=== PATIENT | male | born 1975 | race African-American/Black ===

== ENCOUNTER 2019-04-07 20:59 | Inpatient (IN) | payer OTHER ==
[2019-04-07 22:27] VITALS: BMI 20.2
--- NOTE | 2019-04-07 22:46 | HP ---
CIWA Score Nausea/Vomitin Muscle Tremors: 3 Anxiety: 3 Agitation: 2 Paroxysmal Sweats: 2 Orientation: 0-Oriented Tacttile Disturbances: 3-Moderate Itch/Numb/Burn Auditory Disturbances: 2-Mild Harshness/Frighten Visual Disturbances: 1-Very Mild Sensitivity Headache: 1-Very Mild CIWA-Ar Total Score: 20 - Admission Criteria OASAS Guidelines: Admission for Medically Managed Detox: Requires at least one of the followin. CIWA greater than 12 2. Seizures within the past 24 hours 3. Delirium tremens within the past 24 hours 4. Hallucinations within the past 24 hours 5. Acute intervention needed for co occurring medical disorder 6. Acute intervention needed for co occurring psychiatric disorder 7. Severe withdrawal that cannot be handled at a lower level of care (continued vomiting, continued diarrhea, abnormal vital signs) requiring intravenous medication and/or fluids 8. Admitting History and Physical - Admission History Source: Patient - Past Medical History Psych: Yes: Anxiety, Depression - Smoking History Smoking history: Current every day smoker Have you smoked in the past 12 months: Yes Admission ROS S - HPI Chief Complaint: DEPENDENT ON ETOH AND CRACK Allergies/Adverse Reactions: Allergies Allergy/AdvReac Type Severity Reaction Status Date / Time No Known Allergies Allergy Verified 04/07/19 22:19 History of Present Illness: THE PT. IS REQUESTING ADMISSION TO THE DETOX UNIT AND CAME FOR MEDICAL CLEARANCE Exam Limitations: No Limitations - Ebola screening Have you traveled outside of the country in the last 21 days: No (N) Have you had contact with anyone from an Ebola affected area: No Have you been sick,other than usual withdrawal symptoms: No Do you have a fever: No - Review of Systems Constitutional: See HPI, Loss of Appetite, Malaise, Weakness, Unexplained wgt Loss EENT: reports: See HPI Respiratory: reports: See HPI, Cough Cardiac: reports: See HPI GI: reports: See HPI, Diarrhea, Nausea, Poor Appetite, Indigestion, Abdominal cramping Musculoskeletal: reports: See HPI, Muscle Pain, Muscle Weakness Integumentary: reports: See HPI, Sweating Neuro: reports: See HPI, Headache, Tremors, Weakness Endocrine: reports: See HPI Hematology: reports: See HPI Psychiatric: reports: Judgement Intact, Orientated x3, Anxious, Depressed Patient History - Patient Medical History Hx Seizures: No Hx Human Immunodeficiency Virus (HIV): No Hx Hepatitis C: No Hx Depression: Yes (AND ANXIETY) Hx Suicide Attempt: No - Patient Surgical History Past Surgical History: Yes Hx Orthopedic Surgery: Yes (FRACTURED LEFT ANKLE - SEVERAL YRS. AGO) Other Surgical History: FRACTURED FACIAL BONES AND MANDIBLE - SEVERAL YRS. AGO - Smoking Cessation Smoking history: Current every day smoker Have you smoked in the past 12 months: Yes Aproximately how many cigarettes per day: 20 Hx Chewing Tobacco Use: No Initiated information on smoking cessation: Yes 'Breaking Loose' booklet given: 04/07/19 - Substance & Tx. History Hx Alcohol Use: Yes Hx Substance Use: Yes Substance Use Type: Alcohol, Cocaine Hx Substance Use Treatment: Yes - Substances abused Alcohol Substance route: Oral Frequency: Daily Amount used: i just keep on drinkling'I don't know'. Age of first use: 16 Date of last use: 04/06/19 Crack Substance route: Smoking Frequency: Daily Amount used: ' I don't know', over a 100 dollaRS. Age of first use: 37 Date of last use: 04/06/19 Admission Physical Exam [facility] - Vital Signs Vital Signs: Vital Signs - 24 hr 04/07/19 22:19 Temperature 98.1 F Pulse Rate 90 Respiratory 16 Rate Blood Pressure 141/90 - Physical General Appearance: Yes: No Apparent Distress, Appropriately Dressed, Thin, Tremorous, Sweating, Anxious HEENTM: Yes: Hearing grossly Normal, Normocephalic, Normal Voice, NEVIN, Pharynx Normal Respiratory: Yes: Chest Non-Tender, Lungs Clear, Normal Breath Sounds, No Respiratory Distress, No Accessory Muscle Use Breast: Yes: Breast Exam Deferred, Axillae without masses Cardiology: Yes: Regular Rhythm, S1, S2, Tachycardia Abdominal: Yes: Normal Bowel Sounds, Non Tender, Flat, Soft Back: Yes: Normal Inspection Musculoskeletal: Yes: full range of Motion, Gait Steady, Pelvis Stable, Muscle Pain, Muscle weakness Extremities: Yes: Normal Capillary Refill, Non-Tender, Tremors Neurological: Yes: surgical services manager II-XII NML intact, Fully Oriented, Alert, Motor Strength 5/5, Normal Response, Depressed Affect Integumentary: Yes: Warm, Moist Lymphatic: Yes: Within Normal Limits - Addiitonal Findings: TWO SMALL ABSCESSES ON RT. LEG NOTED THEY ARE OPEN WOUND AND NO DISCHARGE NOTED AT THIS TIME ONCOMYCOSIS NOTED - Diagnostic (1) EtOH dependence Current Visit: Yes Status: Chronic Qualifiers: Substance use status: uncomplicated Qualified Code(s): F10.20 - Alcohol dependence, uncomplicated (2) Cocaine dependence Current Visit: Yes Status: Chronic Qualifiers: Substance use status: uncomplicated Qualified Code(s): F14.20 - Cocaine dependence, uncomplicated (3) Onychomycosis Current Visit: Yes Status: Chronic (4) Nicotine dependence Current Visit: Yes Status: Chronic Qualifiers: Nicotine product type: cigarettes Substance use status: uncomplicated Qualified Code(s): F17.210 - Nicotine dependence, cigarettes, uncomplicated (5) Loss of weight Current Visit: Yes Status: Chronic Cleared for Admission S - Detox or Rehab S Level of Care: Medically Supervised Detox Regimen/Protocol: Librium Breathalyzer - Breathalyzer Breathalyzer: 0 Inpatient Rehab Admission - Rehab Decision to Admit Inpatient rehab admission?: No
[2019-04-07] MEDS ORDERED: chlordiazePOXIDE HCL 25 MG CAPSULE PO ONE (22:53)
[2019-04-07] MEDS ORDERED: MAGNESIUM CITRATE 300 ML BOTTLE PO PRN (22:53)
[2019-04-07] MEDS ORDERED: NICOTINE POLACRILEX 4 MG GUM BUC PRN (22:53)
[2019-04-07] MEDS ORDERED: ACETAMINOPHEN 325 MG TABLET (FP) PO PRN ×2 (22:53)
[2019-04-07] MEDS ORDERED: hydrOXYzine PAMOATE 25 MG CAPSULE (FP) PO PRN (22:53)
[2019-04-07] MEDS ORDERED: METHOCARBAMOL 500 MG TABLET PO PRN (22:53)
[2019-04-07] MEDS ORDERED: MENTHOL/PHENOL 1 EACH UD MM PRN (22:53)
[2019-04-07] MEDS ORDERED: BISMUTH SUBSALICYLATE 524 MG/30 ML UD PO PRN (22:53)
[2019-04-07] MEDS ORDERED: IBUPROFEN 400 MG TABLET (FP) PO PRN (22:53)
[2019-04-07] MEDS ORDERED: MAGNESIUM HYDROX 2400MG/30ML ORAL SUSPENSION 30 ML CUP PO PRN (22:53)
[2019-04-07] MEDS ORDERED: chlordiazePOXIDE HCL 25 MG CAPSULE PO PRN (22:53)
[2019-04-07] MEDS ORDERED: MELATONIN 5 MG TABLETS PO PRN (22:53)
[2019-04-07] MEDS ORDERED: MAG HYDROX/AL HYDROX/SIMETH 30 ML UNIT-DOSE CUP PO PRN (22:53)
[2019-04-07] MEDS: chlordiazePOXIDE HCL 25 MG CAPSULE PO SCH (23:49)
[2019-04-07] MEDS: TOLNAFTATE 1% CREAM 15 GM TUBE TP SCH (23:52)
[2019-04-08] MEDS: chlordiazePOXIDE HCL 25 MG CAPSULE PO SCH ×4 (05:35→22:19)
[2019-04-08 09:56] LABS: HEMATOCRIT 37.7 % (35.4-49); HEMOGLOBIN 12.6 GM/dL (11.7-16.9); MCH 32.7 pg (25.7-33.7); MCHC 33.5 g/dl (32.0-35.9); MEAN CELL VOLUME 97.4 fl (80-96); MEAN PLT VOLUME 8.9 fl (7.5-11.1); PLATELET COUNT 304 K/MM3 (134-434); RBC 3.87 M/mm3 (4.00-5.60); RDW 13.9 % (11.9-15.9); WHITE BLOOD COUNT 7.6 K/mm3 (4.0-10.0)
[2019-04-08 10:12] LABS: ALBUMIN 2.9 g/dl (3.4-5.0); BILIRUBIN,TOTAL 0.3 mg/dL (0.2-1); BLOOD UREA NITROGEN 23.3 mg/dL (7-18); CALCIUM 8.6 mg/dL (8.5-10.1); CREATININE 0.9 mg/dL (0.55-1.3); POTASSIUM 4.1 mmol/L (3.5-5.1); TOT PROT 7.6 g/dl (6.4-8.2)
[2019-04-08] MEDS: PRENATAL VITAMINS W/ FOLIC ACID TABLET (FP) PO SCH (10:22)
[2019-04-08] MEDS: NICOTINE 21 MG/24 HOURS TOPICAL PATCH TD SCH (10:23)
[2019-04-08] MEDS: TOLNAFTATE 1% CREAM 15 GM TUBE TP SCH ×2 (10:23→22:19)
--- NOTE | 2019-04-08 10:26 | PN ---
[facility] CIWA - CIWA Score Nausea/Vomitin-Mild Nausea/No Vomiting Muscle Tremors: 4-Moderate,w/Arms Extend Anxiety: 3 Agitation: 1-Slight > Activity Paroxysmal Sweats: 2 Orientation: 1-Uncertain about Date Tacttile Disturbances: 1-Very Mild Itch/Numbness Auditory Disturbances: 1-Very Mild Visual Disturbances: 0-None Headache: 2-Mild CIWA-Ar Total Score: 16 S Progress Note (SOAP) Subjective: 44 years old male admitted on 04/07/19 for alcohol withdrawal sx management treated with librium detox regimen patient tolerated well ate breakfast resting on bed comfortably prefers to stay in bed today Objective: 04/08/19 10:25 Vital Signs Temperature 96.7 F L 04/08/19 09:15 Pulse Rate 73 04/08/19 09:15 Respiratory Rate 18 04/08/19 09:15 Blood Pressure 115/66 04/08/19 09:15 O2 Sat by Pulse Oximetry (%) Laboratory Last Values WBC 7.6 K/mm3 (4.0-10.0) 04/08/19 08:20 RBC 3.87 M/mm3 (4.00-5.60) L 04/08/19 08:20 Hgb 12.6 GM/dL (11.7-16.9) 04/08/19 08:20 Hct 37.7 % (35.4-49) 04/08/19 08:20 MCV 97.4 fl (80-96) H 04/08/19 08:20 MCH 32.7 pg (25.7-33.7) 04/08/19 08:20 MCHC 33.5 g/dl (32.0-35.9) 04/08/19 08:20 RDW 13.9 % (11.9-15.9) 04/08/19 08:20 Plt Count 304 K/MM3 (134-434) 04/08/19 08:20 MPV 8.9 fl (7.5-11.1) 04/08/19 08:20 Sodium 138 mmol/L (136-145) 04/08/19 08:20 Potassium 4.1 mmol/L (3.5-5.1) 04/08/19 08:20 Chloride 106 mmol/L (98-107) 04/08/19 08:20 Carbon Dioxide 25 mmol/L (21-32) 04/08/19 08:20 Anion Gap 8 MMOL/L (8-16) 04/08/19 08:20 BUN 23.3 mg/dL (7-18) H 04/08/19 08:20 Creatinine 0.9 mg/dL (0.55-1.3) 04/08/19 08:20 Est GFR (CKD-EPI)AfAm 119.97 04/08/19 08:20 Est GFR (CKD-EPI)NonAf 103.51 04/08/19 08:20 Random Glucose 108 mg/dL (74-106) H 04/08/19 08:20 Calcium 8.6 mg/dL (8.5-10.1) 04/08/19 08:20 Total Bilirubin 0.3 mg/dL (0.2-1) 04/08/19 08:20 AST 15 U/L (15-37) 04/08/19 08:20 ALT 20 U/L (13-61) 04/08/19 08:20 Alkaline Phosphatase 118 U/L (45-117) H 04/08/19 08:20 Total Protein 7.6 g/dl (6.4-8.2) 04/08/19 08:20 Albumin 2.9 g/dl (3.4-5.0) L 04/08/19 08:20 lab noted Assessment: 04/08/19 10:25 alcohol withdrawal sx Plan: continue librium detox regimen
--- NOTE | 2019-04-08 12:58 | CONSULT ---
[facility] Psychiatric Consult - Data Date of interview: 04/08/19 Admission source: [facility] Identifying data: First admission to [facility] for this 44 y/o AA male self- referred for detoxification. ISABELLE issues : alcohol, crack/cocaine. Interviewed at [address] [place] [address]. Patient is single, father of two, unemployed, homeless and supported on welfare. Substance Abuse History: Discussed in this session. Details in current [facility] report as follows : Smoking history: Current every day smoker. Have you smoked in the past 12 months: Yes. Aproximately how many cigarettes per day: 20. Hx Chewing Tobacco Use: No. Initiated information on smoking cessation: Yes. ' Breaking Loose' booklet given: 04/07/19. - Substance & Tx. History. Hx Alcohol Use: Yes. Hx Substance Use: Yes. Substance Use Type: Alcohol, Cocaine. Hx Substance Use Treatment: Yes. - Substances abused. Alcohol. Substance route: Oral. Frequency: Daily. Amount used: i just keep on drinkling 'I don't know'. Age of first use: 16. Date of last use: 04/06/19. Crack. Substance route: Smoking. Frequency: Daily. Amount used: ' I don't know', over a 100 dollaRS. Age of first use: 37. Date of last use: 04/06/19 Medical History: Patient endorses good general health. Noted history of onychomycosis and antecedent of surgery for fracture of facial bones + mandible (years ago). Psychiatric History: Patient denies history of psychiatric hospitalizations, OPD care or suicide attempts. Physical/Sexual Abuse/Trauma History: No reported history of traumas or abuse. Additional Comment: No toxicology for review. Mental Status Exam - Mental Status Exam Alert and Oriented to: Time, Place, Person Patient Appearance: Unkempt, Disheveled Mood: Withdrawn Affect: Mood Congruent, Normal Range Patient Behavior: Fatigued, Cooperative Speech Pattern: Clear, Appropriate Voice Loudness: Normal Thought Process: Intact, Goal Oriented Thought Disorder: Not Present Hallucinations: Denies Suicidal Ideation: Denies Homicidal Ideation: Denies Insight/Judgement: Poor Sleep: Well Appetite: Good Muscle strength/Tone: Normal Gait/Station: Normal Psychiatric Findings - Problem List ([place] 1, 2,3) (1) Alcohol use disorder Current Visit: Yes Status: Chronic (2) Cocaine dependence Current Visit: Yes Status: Chronic Qualifiers: Substance use status: uncomplicated Qualified Code(s): F14.20 - Cocaine dependence, uncomplicated (3) Nicotine dependence Current Visit: Yes Status: Chronic Qualifiers: Nicotine product type: cigarettes Substance use status: uncomplicated Qualified Code(s): F17.210 - Nicotine dependence, cigarettes, uncomplicated - Initial Treatment Plan Initial Treatment Plan: Psychoeducation. Sleep hygiene. Detoxification. AA meetings. MAT services offered to patient. Mr Patel declines. Observation.
--- NOTE | 2019-04-08 15:43 | HP ---
CIWA Score Nausea/Vomitin-Mild Nausea/No Vomiting Muscle Tremors: 4-Moderate,w/Arms Extend Anxiety: 3 Agitation: 1-Slight > Activity Paroxysmal Sweats: 2 Orientation: 1-Uncertain about Date Tacttile Disturbances: 1-Very Mild Itch/Numbness Auditory Disturbances: 1-Very Mild Visual Disturbances: 0-None Headache: 2-Mild CIWA-Ar Total Score: 16 - Admission Criteria OASAS Guidelines: Admission for Medically Managed Detox: Requires at least one of the followin. CIWA greater than 12 2. Seizures within the past 24 hours 3. Delirium tremens within the past 24 hours 4. Hallucinations within the past 24 hours 5. Acute intervention needed for co occurring medical disorder 6. Acute intervention needed for co occurring psychiatric disorder 7. Severe withdrawal that cannot be handled at a lower level of care (continued vomiting, continued diarrhea, abnormal vital signs) requiring intravenous medication and/or fluids 8. Admitting History and Physical - Past Medical History Psych: Yes: Anxiety, Depression - Smoking History Smoking history: Current every day smoker Have you smoked in the past 12 months: Yes Aproximately how many cigarettes per day: 20 - Alcohol/Substance Use Hx Alcohol Use: Yes Admission [facility] Allergies/Adverse Reactions: Allergies Allergy/AdvReac Type Severity Reaction Status Date / Time No Known Allergies Allergy Verified 04/07/19 22:19 - Ebola screening Have you traveled outside of the country in the last 21 days: No (N) Have you had contact with anyone from an Ebola affected area: No Have you been sick,other than usual withdrawal symptoms: No Do you have a fever: No Patient History - Patient Medical History Hx Asthma: No Hx Chronic Obstructive Pulmonary Disease (COPD): No Hx Cardiac Disorders: No Hx Hypertension: No Hx Seizures: No Hx Diabetes: No Hx Gastrointestinal Disorders: No Hx Genitourinary Disorders: No Hx Sexually Transmitted Disorders: No Hx Renal Disease (ESRD): No Hx Human Immunodeficiency Virus (HIV): No Hx Hepatitis C: No Hx Depression: Yes (AND ANXIETY) Hx Suicide Attempt: No Hx Schizophrenia: No - Patient Surgical History Past Surgical History: Yes Hx Neurologic Surgery: No Hx Cataract Extraction: No Hx Cardiac Surgery: No Hx Lung Surgery: No Hx Breast Surgery: No Hx Breast Biopsy: No Hx Abdominal Surgery: No Hx Appendectomy: No Hx Cholecystectomy: No Hx Genitourinary Surgery: No Hx Section: No Hx Orthopedic Surgery: Yes (FRACTURED LEFT ANKLE - SEVERAL YRS. AGO) Other Surgical History: FRACTURED FACIAL BONES AND MANDIBLE - SEVERAL YRS. AGO Anesthesia Reaction: No - PPD History Previous Implant?: Yes Documented Results: Negative w/o proof Date: 04/09/19 - Smoking Cessation Smoking history: Current every day smoker Have you smoked in the past 12 months: Yes Aproximately how many cigarettes per day: 20 Hx Chewing Tobacco Use: No Initiated information on smoking cessation: Yes 'Breaking Loose' booklet given: 04/08/19 - Substances abused Alcohol Other (specify): vodka Substance route: Oral Frequency: Daily Amount used: 1-2 pints Age of first use: 17 Date of last use: 04/07/19 Crack Substance route: Smoking Frequency: Daily Amount used: ' I don't know', over a 100 dollaRS. Age of first use: 37 Date of last use: 04/06/19 Admission Physical Exam [facility] - Vital Signs Vital Signs: Vital Signs - 24 hr 04/07/19 04/07/19 04/08/19 22:19 23:47 00:30 Temperature 98.1 F 97.0 F L Pulse Rate 90 104 H Respiratory 16 18 18 Rate Blood Pressure 141/90 130/89 04/08/19 04/08/19 04/08/19 03:30 06:41 09:15 Temperature 97.9 F 96.7 F L Pulse Rate 65 73 Respiratory 18 18 18 Rate Blood Pressure 98/57 L 115/66 04/08/19 13:28 Temperature 97.0 F L Pulse Rate 92 H Respiratory 20 Rate Blood Pressure 109/65 Breathalyzer - Breathalyzer Breathalyzer: 0 Urine Drug Screen - Test Device Lot number: [id number] Expiration date: 12/09/20 - Control Is test valid?: Yes - Results Drug screen NEGATIVE: Yes Urine drug screen results: THC-Marijuana, BZO-Benzodiazepines Inpatient Rehab Admission - Rehab Decision to Admit Inpatient rehab admission?: No
[2019-04-08] MEDS: THIAMINE HCL 100 MG TABLET (FP) PO SCH (22:19)
[2019-04-09] MEDS: chlordiazePOXIDE HCL 25 MG CAPSULE PO SCH ×4 (05:50→22:22)
[2019-04-09] MEDS: PRENATAL VITAMINS W/ FOLIC ACID TABLET (FP) PO SCH (10:50)
[2019-04-09] MEDS: TOLNAFTATE 1% CREAM 15 GM TUBE TP SCH ×2 (10:50→22:22)
[2019-04-09] MEDS: NICOTINE 21 MG/24 HOURS TOPICAL PATCH TD SCH (10:51)
--- NOTE | 2019-04-09 11:19 | PN ---
[facility] CIWA - CIWA Score Nausea/Vomitin-Mild Nausea/No Vomiting Muscle Tremors: 2 Anxiety: 3 Agitation: 2 Paroxysmal Sweats: 1-Minimal Palms Moist Orientation: 0-Oriented Tacttile Disturbances: 1-Very Mild Itch/Numbness Auditory Disturbances: 0-None Visual Disturbances: 0-None Headache: 1-Very Mild CIWA-Ar Total Score: 11 S Progress Note (SOAP) Subjective: 44 years old male admitted on 04/07/19 for alcohol withdrawal sx management treated with librium detox regimen patient tolerate well ambulating on hallway attend groups patient determines to remain sober Objective: 04/09/19 11:18 Vital Signs Temperature 97.6 F 04/09/19 09:26 Pulse Rate 94 H 04/09/19 09:26 Respiratory Rate 18 04/09/19 09:26 Blood Pressure 123/82 04/09/19 09:26 O2 Sat by Pulse Oximetry (%) Laboratory Last Values WBC 7.6 K/mm3 (4.0-10.0) 04/08/19 08:20 RBC 3.87 M/mm3 (4.00-5.60) L 04/08/19 08:20 Hgb 12.6 GM/dL (11.7-16.9) 04/08/19 08:20 Hct 37.7 % (35.4-49) 04/08/19 08:20 MCV 97.4 fl (80-96) H 04/08/19 08:20 MCH 32.7 pg (25.7-33.7) 04/08/19 08:20 MCHC 33.5 g/dl (32.0-35.9) 04/08/19 08:20 RDW 13.9 % (11.9-15.9) 04/08/19 08:20 Plt Count 304 K/MM3 (134-434) 04/08/19 08:20 MPV 8.9 fl (7.5-11.1) 04/08/19 08:20 Sodium 138 mmol/L (136-145) 04/08/19 08:20 Potassium 4.1 mmol/L (3.5-5.1) 04/08/19 08:20 Chloride 106 mmol/L (98-107) 04/08/19 08:20 Carbon Dioxide 25 mmol/L (21-32) 04/08/19 08:20 Anion Gap 8 MMOL/L (8-16) 04/08/19 08:20 BUN 23.3 mg/dL (7-18) H 04/08/19 08:20 Creatinine 0.9 mg/dL (0.55-1.3) 04/08/19 08:20 Est GFR (CKD-EPI)AfAm 119.97 04/08/19 08:20 Est GFR (CKD-EPI)NonAf 103.51 04/08/19 08:20 Random Glucose 108 mg/dL (74-106) H 04/08/19 08:20 Calcium 8.6 mg/dL (8.5-10.1) 04/08/19 08:20 Total Bilirubin 0.3 mg/dL (0.2-1) 04/08/19 08:20 AST 15 U/L (15-37) 04/08/19 08:20 ALT 20 U/L (13-61) 04/08/19 08:20 Alkaline Phosphatase 118 U/L (45-117) H 04/08/19 08:20 Total Protein 7.6 g/dl (6.4-8.2) 04/08/19 08:20 Albumin 2.9 g/dl (3.4-5.0) L 04/08/19 08:20 RPR Titer Nonreactive (NONREACTIVE) 04/08/19 08:20 lab noted Assessment: 04/09/19 11:18 alcohol withdrawal sx Plan: continue librium detox regimen
[2019-04-09] MEDS: THIAMINE HCL 100 MG TABLET (FP) PO SCH (22:22)
[2019-04-10] MEDS ORDERED: chlordiazePOXIDE HCL 10 MG CAPSULE PO PRN
[2019-04-10] MEDS: chlordiazePOXIDE HCL 10 MG CAPSULE PO SCH ×4 (06:09→22:08)
[2019-04-10] MEDS: TOLNAFTATE 1% CREAM 15 GM TUBE TP SCH ×2 (10:25→22:08)
[2019-04-10] MEDS: PRENATAL VITAMINS W/ FOLIC ACID TABLET (FP) PO SCH (10:25)
[2019-04-10] MEDS: NICOTINE 21 MG/24 HOURS TOPICAL PATCH TD SCH (10:25)
--- NOTE | 2019-04-10 11:07 | PN ---
[facility] CIWA - CIWA Score Nausea/Vomitin-Mild Nausea/No Vomiting Muscle Tremors: 2 Anxiety: 3 Agitation: 2 Paroxysmal Sweats: 1-Minimal Palms Moist Orientation: 0-Oriented Tacttile Disturbances: 0-None Auditory Disturbances: 1-Very Mild Visual Disturbances: 0-None Headache: 0-None Present CIWA-Ar Total Score: 10 [facility] Progress Note (SOAP) Subjective: 44 years old male admitted on 04/07/19 for alcohol withdrawal sx management treated with librium detox regimen ate breakfast tolerate food and fluid well resting on bed limited conversation with staff Objective: 04/10/19 11:07 Vital Signs Temperature 97.8 F 04/10/19 09:08 Pulse Rate 88 04/10/19 09:08 Respiratory Rate 18 04/10/19 09:08 Blood Pressure 121/67 04/10/19 09:08 O2 Sat by Pulse Oximetry (%) Laboratory Last Values WBC 7.6 K/mm3 (4.0-10.0) 04/08/19 08:20 RBC 3.87 M/mm3 (4.00-5.60) L 04/08/19 08:20 Hgb 12.6 GM/dL (11.7-16.9) 04/08/19 08:20 Hct 37.7 % (35.4-49) 04/08/19 08:20 MCV 97.4 fl (80-96) H 04/08/19 08:20 MCH 32.7 pg (25.7-33.7) 04/08/19 08:20 MCHC 33.5 g/dl (32.0-35.9) 04/08/19 08:20 RDW 13.9 % (11.9-15.9) 04/08/19 08:20 Plt Count 304 K/MM3 (134-434) 04/08/19 08:20 MPV 8.9 fl (7.5-11.1) 04/08/19 08:20 Sodium 138 mmol/L (136-145) 04/08/19 08:20 Potassium 4.1 mmol/L (3.5-5.1) 04/08/19 08:20 Chloride 106 mmol/L (98-107) 04/08/19 08:20 Carbon Dioxide 25 mmol/L (21-32) 04/08/19 08:20 Anion Gap 8 MMOL/L (8-16) 04/08/19 08:20 BUN 23.3 mg/dL (7-18) H 04/08/19 08:20 Creatinine 0.9 mg/dL (0.55-1.3) 04/08/19 08:20 Est GFR (CKD-EPI)AfAm 119.97 04/08/19 08:20 Est GFR (CKD-EPI)NonAf 103.51 04/08/19 08:20 Random Glucose 108 mg/dL (74-106) H 04/08/19 08:20 Calcium 8.6 mg/dL (8.5-10.1) 04/08/19 08:20 Total Bilirubin 0.3 mg/dL (0.2-1) 04/08/19 08:20 AST 15 U/L (15-37) 04/08/19 08:20 ALT 20 U/L (13-61) 04/08/19 08:20 Alkaline Phosphatase 118 U/L (45-117) H 04/08/19 08:20 Total Protein 7.6 g/dl (6.4-8.2) 04/08/19 08:20 Albumin 2.9 g/dl (3.4-5.0) L 04/08/19 08:20 RPR Titer Nonreactive (NONREACTIVE) 04/08/19 08:20 lab noted Assessment: 04/10/19 11:07 alcohol withdrawal sx Plan: continue librium detox regimen
[2019-04-10] MEDS: THIAMINE HCL 100 MG TABLET (FP) PO SCH (22:08)
[2019-04-11] MEDS: chlordiazePOXIDE HCL 10 MG CAPSULE PO SCH ×2 (05:29→17:34)
[2019-04-11] MEDS: NICOTINE 21 MG/24 HOURS TOPICAL PATCH TD SCH (09:45)
[2019-04-11] MEDS: PRENATAL VITAMINS W/ FOLIC ACID TABLET (FP) PO SCH (09:45)
[2019-04-11] MEDS: TOLNAFTATE 1% CREAM 15 GM TUBE TP SCH ×2 (09:45→22:09)
--- NOTE | 2019-04-11 11:13 | PN ---
[facility] CIWA - CIWA Score Nausea/Vomitin-No Nausea/No Vomiting Muscle Tremors: 2 Anxiety: 2 Agitation: 2 Paroxysmal Sweats: No Perspiration Orientation: 0-Oriented Tacttile Disturbances: 0-None Auditory Disturbances: 0-None Visual Disturbances: 0-None Headache: 0-None Present CIWA-Ar Total Score: 6 [facility] Progress Note (SOAP) Subjective: 44 years old male admitted on 04/07/19 for alcohol withdrawal sx management treated with librium detox regimen ate breakfast ambulating on hallway social with peers discuss aftercare with staff Objective: 04/11/19 11:12 Vital Signs Temperature 97.2 F L 04/11/19 09:09 Pulse Rate 94 H 04/11/19 09:09 Respiratory Rate 18 04/11/19 09:09 Blood Pressure 120/77 04/11/19 09:09 O2 Sat by Pulse Oximetry (%) Laboratory Last Values WBC 7.6 K/mm3 (4.0-10.0) 04/08/19 08:20 RBC 3.87 M/mm3 (4.00-5.60) L 04/08/19 08:20 Hgb 12.6 GM/dL (11.7-16.9) 04/08/19 08:20 Hct 37.7 % (35.4-49) 04/08/19 08:20 MCV 97.4 fl (80-96) H 04/08/19 08:20 MCH 32.7 pg (25.7-33.7) 04/08/19 08:20 MCHC 33.5 g/dl (32.0-35.9) 04/08/19 08:20 RDW 13.9 % (11.9-15.9) 04/08/19 08:20 Plt Count 304 K/MM3 (134-434) 04/08/19 08:20 MPV 8.9 fl (7.5-11.1) 04/08/19 08:20 Sodium 138 mmol/L (136-145) 04/08/19 08:20 Potassium 4.1 mmol/L (3.5-5.1) 04/08/19 08:20 Chloride 106 mmol/L (98-107) 04/08/19 08:20 Carbon Dioxide 25 mmol/L (21-32) 04/08/19 08:20 Anion Gap 8 MMOL/L (8-16) 04/08/19 08:20 BUN 23.3 mg/dL (7-18) H 04/08/19 08:20 Creatinine 0.9 mg/dL (0.55-1.3) 04/08/19 08:20 Est GFR (CKD-EPI)AfAm 119.97 04/08/19 08:20 Est GFR (CKD-EPI)NonAf 103.51 04/08/19 08:20 Random Glucose 108 mg/dL (74-106) H 04/08/19 08:20 Calcium 8.6 mg/dL (8.5-10.1) 04/08/19 08:20 Total Bilirubin 0.3 mg/dL (0.2-1) 04/08/19 08:20 AST 15 U/L (15-37) 04/08/19 08:20 ALT 20 U/L (13-61) 04/08/19 08:20 Alkaline Phosphatase 118 U/L (45-117) H 04/08/19 08:20 Total Protein 7.6 g/dl (6.4-8.2) 04/08/19 08:20 Albumin 2.9 g/dl (3.4-5.0) L 04/08/19 08:20 RPR Titer Nonreactive (NONREACTIVE) 04/08/19 08:20 lab noted Assessment: 04/11/19 11:13 alcohol withdrawal sx Plan: continue librium detox regimen
[2019-04-11] MEDS: THIAMINE HCL 100 MG TABLET (FP) PO SCH (21:36)
[2019-04-12] MEDS ORDERED: chlordiazePOXIDE HCL 10 MG CAPSULE PO ONE (05:00)
[2019-04-12 09:17] VITALS: BP 115/72; PULSE 102; TEMP 97.8
--- NOTE | 2019-04-12 09:48 | DS ---
[facility] Detox Discharge Summary Admission Date: 04/07/19 - History Present History: Alcohol Dependence, Cocaine Dependence Additional Comments: Patient tolerated detox well, follow up with psychiatric care at [facility]. Patient refuse referral to after care, list of out patient programs provided. If worsening symptoms are present patient to seek medical attention. Pertinent Past History: Vital Signs Temperature 97.8 F 04/12/19 09:16 Pulse Rate 102 H 04/12/19 09:16 Respiratory Rate 18 04/12/19 09:16 Blood Pressure 115/72 04/12/19 09:16 O2 Sat by Pulse Oximetry (%) Laboratory Last Values WBC 7.6 K/mm3 (4.0-10.0) 04/08/19 08:20 RBC 3.87 M/mm3 (4.00-5.60) L 04/08/19 08:20 Hgb 12.6 GM/dL (11.7-16.9) 04/08/19 08:20 Hct 37.7 % (35.4-49) 04/08/19 08:20 MCV 97.4 fl (80-96) H 04/08/19 08:20 MCH 32.7 pg (25.7-33.7) 04/08/19 08:20 MCHC 33.5 g/dl (32.0-35.9) 04/08/19 08:20 RDW 13.9 % (11.9-15.9) 04/08/19 08:20 Plt Count 304 K/MM3 (134-434) 04/08/19 08:20 MPV 8.9 fl (7.5-11.1) 04/08/19 08:20 Sodium 138 mmol/L (136-145) 04/08/19 08:20 Potassium 4.1 mmol/L (3.5-5.1) 04/08/19 08:20 Chloride 106 mmol/L (98-107) 04/08/19 08:20 Carbon Dioxide 25 mmol/L (21-32) 04/08/19 08:20 Anion Gap 8 MMOL/L (8-16) 04/08/19 08:20 BUN 23.3 mg/dL (7-18) H 04/08/19 08:20 Creatinine 0.9 mg/dL (0.55-1.3) 04/08/19 08:20 Est GFR (CKD-EPI)AfAm 119.97 04/08/19 08:20 Est GFR (CKD-EPI)NonAf 103.51 04/08/19 08:20 Random Glucose 108 mg/dL (74-106) H 04/08/19 08:20 Calcium 8.6 mg/dL (8.5-10.1) 04/08/19 08:20 Total Bilirubin 0.3 mg/dL (0.2-1) 04/08/19 08:20 AST 15 U/L (15-37) 04/08/19 08:20 ALT 20 U/L (13-61) 04/08/19 08:20 Alkaline Phosphatase 118 U/L (45-117) H 04/08/19 08:20 Total Protein 7.6 g/dl (6.4-8.2) 04/08/19 08:20 Albumin 2.9 g/dl (3.4-5.0) L 04/08/19 08:20 RPR Titer Nonreactive (NONREACTIVE) 04/08/19 08:20 - Physical Exam Results Vital Signs: Vital Signs Temperature 97.8 F 04/12/19 09:16 Pulse Rate 102 H 04/12/19 09:16 Respiratory Rate 18 04/12/19 09:16 Blood Pressure 115/72 04/12/19 09:16 O2 Sat by Pulse Oximetry (%) - Treatment Hospital Course: Detox Protocol Followed, Detoxed Safely, Responded well, Discharged Condition Good Patient has Accepted a Rehab Referral to: follow up with out patient - Medication Discharge Medications: Ambulatory Orders Mirtazapine [Remeron -] 1 tablet PO HS 04/07/19 - Diagnosis (1) Alcohol dependence with withdrawal, uncomplicated Status: Acute (2) Cocaine dependence Status: Chronic Qualifiers: Substance use status: uncomplicated Qualified Code(s): F14.20 - Cocaine dependence, uncomplicated (3) Nicotine dependence Status: Chronic Qualifiers: Nicotine product type: cigarettes Substance use status: uncomplicated Qualified Code(s): F17.210 - Nicotine dependence, cigarettes, uncomplicated - AMA Did Patient Leave Against Medical Advice: No
[2019-04-12] MEDS: TOLNAFTATE 1% CREAM 15 GM TUBE TP SCH (10:17)
[2019-04-12] MEDS: NICOTINE 21 MG/24 HOURS TOPICAL PATCH TD SCH (10:17)
[2019-04-12] MEDS: PRENATAL VITAMINS W/ FOLIC ACID TABLET (FP) PO SCH (10:17)
== END 2019-04-12 10:45 | disposition home or self-care (01) | DRG 774 ==
LOC: YASAS 20:59 → Y3N 22:48
PROVIDERS: ADMIT Allergy & Immunology; ATTEND Allergy & Immunology
PROC: HZ2ZZZZ Detoxification Services for Substance Abuse Treatment (ICD-10-PCS; principal; 2019-04-07)
DX: F10.230 Alcohol dependence with withdrawal, uncomplicated (principal); F14.20 Cocaine dependence, uncomplicated; F17.210 Nicotine dependence, cigarettes, uncomplicated; F41.8 Other specified anxiety disorders; F32.9 Major depressive disorder, single episode, unspecified
CPT/HCPCS: 36415; 80053; 85027; 86593

== ENCOUNTER 2023-03-07 17:07 | Inpatient (IN) | payer OTHER ==
[2023-03-07 19:25] VITALS: BMI 30.5
[2023-03-08] MEDS ORDERED: BENZOCAINE/MENTHOL (CHLORASEPTIC ) LOZENGE MM PRN (02:11)
[2023-03-08] MEDS ORDERED: COLLOIDAL OATMEAL 1 BAR EACH TP PRN (02:11)
[2023-03-08] MEDS ORDERED: NALOXONE HCL 0.4 MG/ML VIAL IM PRN (02:11)
[2023-03-08] MEDS ORDERED: IBUPROFEN 400 MG TABLET (FP) PO PRN (02:11)
[2023-03-08] MEDS ORDERED: MAG HYDROX/AL HYDROX/SIMETH 30 ML UNIT-DOSE CUP PO PRN (02:11)
[2023-03-08] MEDS ORDERED: BENZONATATE 200 MG CAPSULE PO PRN (02:11)
[2023-03-08] MEDS ORDERED: ACETAMINOPHEN 325 MG TABLET (FP) PO PRN (02:11)
[2023-03-08] MEDS ORDERED: MAGNESIUM HYDROX 2400MG/30ML ORAL SUSPENSION 30 ML CUP PO PRN (02:11)
[2023-03-08] MEDS ORDERED: POLYETHYLENE GLYCOL (HEALTHYLAX) 3350 17 GM PACKET PO PRN (02:11)
[2023-03-08] MEDS ORDERED: NICOTINE POLACRILEX 2 MG GUM BUC PRN (02:11)
[2023-03-08] MEDS ORDERED: LOPERAMIDE HCL 2 MG CAPSULE PO PRN (02:11)
[2023-03-08] MEDS ORDERED: guaiFENesin 600 MG TABLET.ER (FP) PO PRN (02:11)
[2023-03-08] MEDS ORDERED: hydrOXYzine PAMOATE 25 MG CAPSULE (FP) PO PRN (02:11)
[2023-03-08] MEDS ORDERED: IBUPROFEN 600 MG TABLET (FP) PO PRN (02:11)
[2023-03-08] MEDS ORDERED: NALOXONE HCL (KLOXXADO) 8 MG SPRAY NS PRN (02:11)
[2023-03-08] MEDS: NICOTINE 14 MG/24 HOURS TOPICAL PATCH TD SCH (09:23)
[2023-03-08] MEDS: PRENATAL VITAMINS W/ FOLIC ACID TABLET (FP) PO SCH (09:23)
[2023-03-08 12:01] LABS: POTASSIUM 3.7 mmol/L (3.5-5.1)
[2023-03-08 12:13] LABS: ALBUMIN 3.4 g/dl (3.4-5.0); CALCIUM 8.8 mg/dL (8.5-10.1)
[2023-03-08 12:16] LABS: CREATININE 0.9 mg/dL (0.55-1.3)
[2023-03-08 12:18] LABS: BILIRUBIN,TOTAL 0.7 mg/dL (0.2-1); TOT PROT 8.5 g/dl (6.4-8.2)
[2023-03-08 12:22] LABS: HEMATOCRIT 37.6 % (35.4-49); HEMOGLOBIN 13.2 GM/dL (11.7-16.9); MCH 32.5 pg (25.7-33.7); MCHC 35.1 g/dl (32.0-35.9); MEAN CELL VOLUME 92.7 fl (80-96); MEAN PLT VOLUME 8.8 fl (7.5-11.1); PLATELET COUNT 269 10^3/uL (134-434); RBC 4.06 M/mm3 (4.00-5.60); RDW 15.5 % (11.9-15.9); WHITE BLOOD COUNT 8.5 K/mm3 (4.0-10.0)
[2023-03-08 12:26] LABS: SYPHILIS W/ RPR CONF NON-REACTIVE (NONREACTIVE)
[2023-03-08 15:17] LABS: URINE APPEARANCE Clear; URINE BILIRUBIN Negative (NEGATIVE); URINE COLOR Yellow; URINE GLUCOSE (UA) Negative (NEGATIVE); URINE KETONE Negative (NEGATIVE); URINE LEUK ESTERASE Negative (NEGATIVE); URINE NITRITE Negative (NEGATIVE); URINE PROTEIN Negative (NEGATIVE)
[2023-03-08] MEDS: THIAMINE HCL 100 MG TABLET (FP) PO SCH (21:45)
[2023-03-08] MEDS ORDERED: MELATONIN 5 MG TABLETS PO SCH (22:00)
[2023-03-09] MEDS: NICOTINE 14 MG/24 HOURS TOPICAL PATCH TD SCH (10:00)
[2023-03-09] MEDS: PRENATAL VITAMINS W/ FOLIC ACID TABLET (FP) PO SCH (10:00)
[2023-03-09] MEDS ORDERED: TUBERCULIN PPD 5 TU/0.1ML VIAL ID ONE (11:37)
[2023-03-09] MEDS ORDERED: TUBERCULIN PPD 5 TU/0.1ML SYRINGE (IN PATIENT USE ONLY) ID ONE (12:00)
[2023-03-09] MEDS ORDERED: NICOTINE 14 MG/24 HOURS TOPICAL PATCH TD PRN (15:45)
[2023-03-09] MEDS: BICTEGRAV/EMTRICIT/TENOFOV (BIKTARVY) 50-200-25 MG TABLET PO SCH (16:21)
[2023-03-09] MEDS: THIAMINE HCL 100 MG TABLET (FP) PO SCH (21:24)
[2023-03-09] MEDS ORDERED: MIRTAZAPINE 15 MG TABLET (FP) ONE (21:25)
[2023-03-09] MEDS: MIRTAZAPINE 30 MG TABLET PO SCH (21:26)
[2023-03-10] MEDS: BICTEGRAV/EMTRICIT/TENOFOV (BIKTARVY) 50-200-25 MG TABLET PO SCH (07:41)
[2023-03-10] MEDS: PRENATAL VITAMINS W/ FOLIC ACID TABLET (FP) PO SCH (10:36)
[2023-03-10] MEDS ORDERED: MIRTAZAPINE 15 MG TABLET (FP) ONE (19:25)
[2023-03-10] MEDS: THIAMINE HCL 100 MG TABLET (FP) PO SCH (21:27)
[2023-03-10] MEDS: MIRTAZAPINE 30 MG TABLET PO SCH (21:27)
[2023-03-11] MEDS: BICTEGRAV/EMTRICIT/TENOFOV (BIKTARVY) 50-200-25 MG TABLET PO SCH (07:19)
[2023-03-11] MEDS: PRENATAL VITAMINS W/ FOLIC ACID TABLET (FP) PO SCH (10:14)
[2023-03-11] MEDS ORDERED: MIRTAZAPINE 15 MG TABLET (FP) ONE (18:45)
[2023-03-11] MEDS: THIAMINE HCL 100 MG TABLET (FP) PO SCH (21:07)
[2023-03-11] MEDS: MIRTAZAPINE 30 MG TABLET PO SCH (21:08)
[2023-03-12] MEDS: BICTEGRAV/EMTRICIT/TENOFOV (BIKTARVY) 50-200-25 MG TABLET PO SCH (07:41)
[2023-03-12] MEDS: PRENATAL VITAMINS W/ FOLIC ACID TABLET (FP) PO SCH (09:44)
[2023-03-12] MEDS ORDERED: MIRTAZAPINE 15 MG TABLET (FP) ONE (18:40)
[2023-03-12] MEDS: MIRTAZAPINE 30 MG TABLET PO SCH (21:16)
[2023-03-12] MEDS: THIAMINE HCL 100 MG TABLET (FP) PO SCH (21:16)
[2023-03-13] MEDS: BICTEGRAV/EMTRICIT/TENOFOV (BIKTARVY) 50-200-25 MG TABLET PO SCH ×2 (07:08→14:47)
[2023-03-13] MEDS ORDERED: BICTEGRAV/EMTRICIT/TENOFOV (BIKTARVY) 50-200-25 MG TABLET PO SCH (10:00)
[2023-03-13] MEDS: PRENATAL VITAMINS W/ FOLIC ACID TABLET (FP) PO SCH (10:25)
[2023-03-13] MEDS ORDERED: MIRTAZAPINE 15 MG TABLET (FP) ONE (19:21)
[2023-03-13] MEDS: THIAMINE HCL 100 MG TABLET (FP) PO SCH (21:18)
[2023-03-13] MEDS: MIRTAZAPINE 30 MG TABLET PO SCH (21:19)
[2023-03-14] MEDS: BICTEGRAV/EMTRICIT/TENOFOV (BIKTARVY) 50-200-25 MG TABLET PO SCH ×2 (07:55→09:00)
[2023-03-14] MEDS: PRENATAL VITAMINS W/ FOLIC ACID TABLET (FP) PO SCH (10:22)
[2023-03-14] MEDS ORDERED: MIRTAZAPINE 15 MG TABLET (FP) ONE (19:27)
[2023-03-14] MEDS: THIAMINE HCL 100 MG TABLET (FP) PO SCH (21:36)
[2023-03-14] MEDS: MIRTAZAPINE 30 MG TABLET PO SCH (21:36)
[2023-03-15] MEDS: BICTEGRAV/EMTRICIT/TENOFOV (BIKTARVY) 50-200-25 MG TABLET PO SCH (07:44)
[2023-03-15] MEDS: PRENATAL VITAMINS W/ FOLIC ACID TABLET (FP) PO SCH (10:29)
[2023-03-15] MEDS ORDERED: MIRTAZAPINE 15 MG TABLET (FP) ONE (19:00)
[2023-03-15] MEDS: MIRTAZAPINE 30 MG TABLET PO SCH (21:25)
[2023-03-15] MEDS: THIAMINE HCL 100 MG TABLET (FP) PO SCH (21:25)
[2023-03-16] MEDS: BICTEGRAV/EMTRICIT/TENOFOV (BIKTARVY) 50-200-25 MG TABLET PO SCH (07:57)
[2023-03-16] MEDS: PRENATAL VITAMINS W/ FOLIC ACID TABLET (FP) PO SCH (10:08)
[2023-03-16] MEDS ORDERED: MIRTAZAPINE 15 MG TABLET (FP) ONE (18:50)
[2023-03-16] MEDS: MIRTAZAPINE 30 MG TABLET PO SCH (21:13)
[2023-03-16] MEDS: THIAMINE HCL 100 MG TABLET (FP) PO SCH (21:13)
[2023-03-17] MEDS: BICTEGRAV/EMTRICIT/TENOFOV (BIKTARVY) 50-200-25 MG TABLET PO SCH (07:59)
[2023-03-17] MEDS: PRENATAL VITAMINS W/ FOLIC ACID TABLET (FP) PO SCH (10:04)
[2023-03-17] MEDS ORDERED: MIRTAZAPINE 15 MG TABLET (FP) ONE (19:07)
[2023-03-17] MEDS: MIRTAZAPINE 30 MG TABLET PO SCH (21:19)
[2023-03-17] MEDS: THIAMINE HCL 100 MG TABLET (FP) PO SCH (21:19)
[2023-03-18] MEDS: BICTEGRAV/EMTRICIT/TENOFOV (BIKTARVY) 50-200-25 MG TABLET PO SCH (07:52)
[2023-03-18] MEDS: PRENATAL VITAMINS W/ FOLIC ACID TABLET (FP) PO SCH (10:06)
[2023-03-18] MEDS ORDERED: MIRTAZAPINE 15 MG TABLET (FP) ONE (19:38)
[2023-03-18] MEDS: THIAMINE HCL 100 MG TABLET (FP) PO SCH (21:06)
[2023-03-18] MEDS: MIRTAZAPINE 30 MG TABLET PO SCH (21:06)
[2023-03-19] MEDS: BICTEGRAV/EMTRICIT/TENOFOV (BIKTARVY) 50-200-25 MG TABLET PO SCH (07:44)
[2023-03-19] MEDS: PRENATAL VITAMINS W/ FOLIC ACID TABLET (FP) PO SCH (09:45)
[2023-03-19] MEDS ORDERED: MIRTAZAPINE 15 MG TABLET (FP) ONE (18:59)
[2023-03-19] MEDS: MIRTAZAPINE 30 MG TABLET PO SCH (21:03)
[2023-03-19] MEDS: THIAMINE HCL 100 MG TABLET (FP) PO SCH (21:03)
[2023-03-20 07:15] VITALS: BP 126/82; PULSE 86; RESP 17; TEMP 97.6
[2023-03-20] MEDS: BICTEGRAV/EMTRICIT/TENOFOV (BIKTARVY) 50-200-25 MG TABLET PO SCH (08:54)
[2023-03-20] MEDS: PRENATAL VITAMINS W/ FOLIC ACID TABLET (FP) PO SCH (09:06)
== END 2023-03-20 09:34 | disposition home or self-care (01) | DRG 772 ==
LOC: YASAS 17:07 → Y3E 03-08 04:23
PROVIDERS: ADMIT Allergy & Immunology; ATTEND Psychiatry & Neurology Pain Medicine
PROC: HZ42ZZZ Group Counseling for Substance Abuse Treatment, Cognitive-Behavioral (ICD-10-PCS; principal; 2023-03-08)
DX: F10.20 Alcohol dependence, uncomplicated (principal); F14.20 Cocaine dependence, uncomplicated; F17.210 Nicotine dependence, cigarettes, uncomplicated; F19.282 Other psychoactive substance dependence with psychoactive substance-induced sleep disorder; Z21 Asymptomatic human immunodeficiency virus [HIV] infection status; I10 Essential (primary) hypertension; L03.116 Cellulitis of left lower limb; R26.89 Other abnormalities of gait and mobility; Z99.89 Dependence on other enabling machines and devices; Z86.59 Personal history of other mental and behavioral disorders; Z59.01 Sheltered homelessness; Z56.0 Unemployment, unspecified
CPT/HCPCS: 36415; 80053; 81003; 85027; 86780; 86803; 87635

== ENCOUNTER 2023-11-14 12:10 | Emergency (ER) | payer OTHER ==
[2023-11-14 12:36] VITALS: RESP 18; BMI 17.2
[2023-11-14] MEDS ORDERED: ACETAMINOPHEN INJECTION 100 ML IVPB ONE (13:41)
[2023-11-14 13:58] LABS: BASO % 0.4 % (0-2.0); EOS % 4.9 % (0-4.5); HEMATOCRIT 38.1 % (35.4-49); HEMOGLOBIN 12.7 GM/dL (11.7-16.9); LYMPH % 24.9 % (8-40); MCH 32.7 pg (25.7-33.7); MCHC 33.3 g/dl (32.0-35.9); MEAN CELL VOLUME 98.3 fl (80-96); MEAN PLT VOLUME 7.8 fl (7.5-11.1); NEUT % 59.8 % (42.8-82.8); PLATELET COUNT 293 10^3/uL (134-434); RBC 3.87 M/mm3 (4.00-5.60); RDW 15.2 % (11.9-15.9); WHITE BLOOD COUNT 8.3 K/mm3 (4.0-10.0)
[2023-11-14 14:01] LABS: EPI CELLS 6 /uL (0-25.1); HYALINE CASTS 2 /uL (0-3.1); PH,URINE 5.5 (5.0-8.0); URINE APPEARANCE CLEAR; URINE BACTERIA 7 /uL (0-1359); URINE BILIRUBIN NEGATIVE (NEGATIVE); URINE COLOR YELLOW; URINE GLUCOSE (UA) NEGATIVE (NEGATIVE); URINE KETONE TRACE (NEGATIVE); URINE LEUK ESTERASE TRACE (NEGATIVE); URINE NITRITE NEGATIVE (NEGATIVE); URINE PROTEIN NEGATIVE (NEGATIVE); URINE RBC 22 /uL (0-23.9); URINE WBC 94 /uL (0-25.8)
[2023-11-14] MEDS: SODIUM CHLORIDE 0.9% 500 ML INFUS.BAG IV ONE (14:08)
[2023-11-14] MEDS: ACETAMINOPHEN 1000 MG/100 ML BAG IVPB ONE (14:09)
[2023-11-14 14:11] LABS: ACTIVATED PTT 30.8 SECONDS (25.2-36.5); INR 1.02 (0.83-1.09); PROTHROMBIN TIME (PATIENT) 11.7 SEC (9.7-13.0)
[2023-11-14 14:32] LABS: ALBUMIN 3.2 g/dl (3.4-5.0); BLOOD UREA NITROGEN 17.3 mg/dL (7-18)
[2023-11-14 14:35] LABS: PHOSPHOROUS 3.4 mg/dL (2.5-4.9)
[2023-11-14 14:37] LABS: BILIRUBIN,TOTAL 1.6 mg/dL (0.2-1); TOT PROT 7.9 g/dl (6.4-8.2)
[2023-11-14 15:10] LABS: CREATININE 0.9 mg/dL (0.55-1.3)
[2023-11-14] MEDS: SODIUM CHLORIDE 1,000 ML IV STA (16:32)
[2023-11-14 17:40] VITALS: BP 116/66; PULSE 74; TEMP 97.9
[2023-11-14] MEDS ORDERED: CEPHALEXIN MONOHYDRATE 500 MG CAPSULE (UD) ONE (18:43)
[2023-11-14] MEDS: CEPHALEXIN MONOHYDRATE 500 MG CAPSULE (UD) PO ONE (18:49)
== END 2023-11-14 19:16 | disposition home or self-care (01) ==
LOC: JER 12:10
PROC: 3E033NZ Introduction of Analgesics, Hypnotics, Sedatives into Peripheral Vein, Percutaneous Approach (ICD-10-PCS; principal; 2023-11-14)
PROC: 3E0337Z Introduction of Electrolytic and Water Balance Substance into Peripheral Vein, Percutaneous Approach (ICD-10-PCS; 2023-11-14)
DX: R42 Dizziness and giddiness (principal); M25.474 Effusion, right foot; F10.20 Alcohol dependence, uncomplicated; F14.20 Cocaine dependence, uncomplicated; M79.10 Myalgia, unspecified site; M79.671 Pain in right foot; M79.672 Pain in left foot; Z59.00 Homelessness unspecified
CPT/HCPCS: 36415; 71045-TC-FY; 73630-TC-RT-FY; 80053; 81003; 82550; 82962; 83735; 84100; 84484; 85025; 85610; 85730; 87086; 93005; 93010; 99285-25; J0131

== ENCOUNTER 2023-11-14 20:07 | Inpatient (IN) | payer OTHER ==
[2023-11-14 20:50] VITALS: BMI 23.6
[2023-11-14] MEDS ORDERED: POLYETHYLENE GLYCOL (HEALTHYLAX) 3350 17 GM PACKET PO PRN (21:31)
[2023-11-14] MEDS ORDERED: guaiFENesin 600 MG TABLET.ER (FP) PO PRN (21:31)
[2023-11-14] MEDS ORDERED: BENZONATATE 200 MG CAPSULE PO PRN (21:31)
[2023-11-14] MEDS ORDERED: IBUPROFEN 400 MG TABLET (FP) PO PRN (21:31)
[2023-11-14] MEDS ORDERED: NICOTINE POLACRILEX 2 MG GUM BUC PRN (21:31)
[2023-11-14] MEDS ORDERED: MAG HYDROX/AL HYDROX/SIMETH 30 ML UNIT-DOSE CUP PO PRN (21:31)
[2023-11-14] MEDS ORDERED: ACETAMINOPHEN 325 MG TABLET (FP) PO PRN (21:31)
[2023-11-14] MEDS ORDERED: NICOTINE POLACRILEX 2 MG LOZENGE BC PRN (21:31)
[2023-11-14] MEDS ORDERED: IBUPROFEN 600 MG TABLET (FP) PO PRN (21:31)
[2023-11-14] MEDS ORDERED: LOPERAMIDE HCL 2 MG CAPSULE PO PRN (21:31)
[2023-11-14] MEDS ORDERED: BENZOCAINE/MENTHOL (CHLORASEPTIC ) LOZENGE MM PRN (21:31)
[2023-11-14] MEDS ORDERED: MAGNESIUM HYDROX 2400MG/30ML ORAL SUSPENSION 30 ML CUP PO PRN (21:31)
[2023-11-15] MEDS: THIAMINE 100 MG TABLET PO SCH (00:48)
[2023-11-15] MEDS: MELATONIN 5 MG TABLETS PO SCH (00:48)
[2023-11-15] MEDS: BICTEGRAV/EMTRICIT/TENOFOV (BIKTARVY) 50-200-25 MG TABLET PO SCH (10:27)
[2023-11-15] MEDS: PRENATAL VITAMINS W/ FOLIC ACID TABLET (FP) PO SCH (10:27)
[2023-11-15] MEDS: METHOCARBAMOL 500 MG TABLET PO PRN (10:29)
[2023-11-16] MEDS: VITAMINS A AND D TOPICAL OINTMENT TP SCH (17:11)
[2023-11-16] MEDS: MIRTAZAPINE 30 MG TABLET PO SCH (21:27)
[2023-11-20] MEDS ORDERED: VITAMINS A AND D TOPICAL OINTMENT TP PRN (10:00)
[2023-11-24 07:01] VITALS: RESP 18
[2023-11-29 06:15] VITALS: BP 120/71; PULSE 74; TEMP 97.2
== END 2023-11-29 09:20 | disposition home or self-care (01) | DRG 772 ==
LOC: YASAS 20:07 → Y5N 11-15 01:12
PROVIDERS: ADMIT Allergy & Immunology; ATTEND Psychiatry & Neurology Pain Medicine
PROC: HZ42ZZZ Group Counseling for Substance Abuse Treatment, Cognitive-Behavioral (ICD-10-PCS; principal; 2023-11-15)
DX: F10.20 Alcohol dependence, uncomplicated (principal); F14.20 Cocaine dependence, uncomplicated; F17.210 Nicotine dependence, cigarettes, uncomplicated; F19.282 Other psychoactive substance dependence with psychoactive substance-induced sleep disorder; F32.A Depression, unspecified; Z21 Asymptomatic human immunodeficiency virus [HIV] infection status; Z79.899 Other long term (current) drug therapy; B35.1 Tinea unguium; N39.0 Urinary tract infection, site not specified; R63.4 Abnormal weight loss; Z68.23 Body mass index [BMI] 23.0-23.9, adult; R26.89 Other abnormalities of gait and mobility; Z99.89 Dependence on other enabling machines and devices; Z59.00 Homelessness unspecified
CPT/HCPCS: 80305; 87811

== ENCOUNTER 2024-08-01 16:38 | Inpatient (IN) | payer OTHER ==
[2024-08-01 19:25] VITALS: BMI 23.5
[2024-08-01] MEDS ORDERED: NALOXONE (NARCAN) HCL 4 MG/0.1 ML SPRAY NS PRN (20:00)
[2024-08-01] MEDS ORDERED: IBUPROFEN 600 MG TABLET (FP) PO PRN (20:00)
[2024-08-01] MEDS ORDERED: BENZOCAINE/MENTHOL (CHLORASEPTIC ) LOZENGE MM PRN (20:00)
[2024-08-01] MEDS ORDERED: BENZONATATE 200 MG CAPSULE PO PRN (20:00)
[2024-08-01] MEDS ORDERED: MAGNESIUM HYDROX 2400MG/30ML ORAL SUSPENSION 30 ML CUP PO PRN (20:00)
[2024-08-01] MEDS ORDERED: NICOTINE POLACRILEX 2 MG LOZENGE BC PRN (20:00)
[2024-08-01] MEDS ORDERED: guaiFENesin 600 MG TABLET.ER (FP) PO PRN (20:00)
[2024-08-01] MEDS ORDERED: MAG HYDROX/AL HYDROX/SIMETH 30 ML UNIT-DOSE CUP PO PRN (20:00)
[2024-08-01] MEDS ORDERED: POLYETHYLENE GLYCOL (HEALTHYLAX) 3350 17 GM PACKET PO PRN (20:00)
[2024-08-01] MEDS ORDERED: LOPERAMIDE HCL 2 MG CAPSULE PO PRN (20:00)
[2024-08-01] MEDS ORDERED: IBUPROFEN 400 MG TABLET (FP) PO PRN (20:00)
[2024-08-02] MEDS: MELATONIN 5 MG TABLETS PO SCH (01:10)
[2024-08-02] MEDS: THIAMINE 100 MG TABLET PO SCH (01:10)
[2024-08-02] MEDS: diphenhydrAMINE HCL 25 MG CAPSULE (FP) PO ONE (01:16)
[2024-08-02] MEDS: PRENATAL VITAMINS W/ FOLIC ACID TABLET (FP) PO SCH (09:19)
[2024-08-02] MEDS: NICOTINE 14 MG/24 HOURS TOPICAL PATCH TD SCH (09:20)
[2024-08-02] MEDS: BICTEGRAV/EMTRICIT/TENOFOV (BIKTARVY) 50-200-25 MG TABLET PO SCH (10:27)
[2024-08-02 11:23] LABS: HEMOGLOBIN 12.5 GM/dL (11.7-16.9); MCH 32.3 pg (25.7-33.7); MCHC 33.7 g/dl (32.0-35.9); MEAN CELL VOLUME 95.8 fl (80-96); MEAN PLT VOLUME 8.5 fl (7.5-11.1); PLATELET COUNT 374 10^3/uL (134-434); RBC 3.87 M/mm3 (4.00-5.60); RDW 15.8 % (11.9-15.9); WHITE BLOOD COUNT 7.7 K/mm3 (4.0-10.0)
[2024-08-02 11:26] LABS: CHLORIDE 105 mmol/L (98-107); POTASSIUM 3.8 mmol/L (3.5-5.1); SODIUM 139 mmol/L (136-145)
[2024-08-02 11:31] LABS: ALBUMIN 2.9 g/dl (3.4-5.0); BLOOD UREA NITROGEN 15.1 mg/dL (7-18)
[2024-08-02 11:32] LABS: ANION GAP 5 mmol/L (4-13); CO2 29 mmol/L (21-32); GLUCOSE,RANDOM 81 mg/dL (74-106)
[2024-08-02 11:34] LABS: SGOT/AST 21 U/L (15-37); SGPT/ALT 29 U/L (13-61)
[2024-08-02 11:35] LABS: CREATININE 0.8 mg/dL (0.55-1.3)
[2024-08-02 11:36] LABS: BILIRUBIN,TOTAL 0.4 mg/dL (0.2-1); TOT PROT 7.4 g/dl (6.4-8.2)
[2024-08-02 11:37] LABS: ALK PHOS 138 U/L (45-117)
[2024-08-02] MEDS: HYDROCORTISONE 1% TOPICAL CREAM 30 GM TUBE TP PRN (11:56)
[2024-08-02 11:59] LABS: SYPHILIS W/ RPR CONF REACTIVE (NONREACTIVE)
[2024-08-02] MEDS: hydrOXYzine PAMOATE 25 MG CAPSULE (FP) PO PRN (19:21)
[2024-08-02] MEDS: MIRTAZAPINE 15 MG TABLET (FP) PO SCH (21:25)
[2024-08-03 11:07] LABS: URINE APPEARANCE CLEAR; URINE BILIRUBIN NEGATIVE (NEGATIVE); URINE COLOR YELLOW; URINE GLUCOSE (UA) NEGATIVE (NEGATIVE); URINE KETONE NEGATIVE (NEGATIVE); URINE LEUK ESTERASE NEGATIVE (NEGATIVE); URINE NITRITE NEGATIVE (NEGATIVE); URINE PROTEIN NEGATIVE (NEGATIVE); URINE UROBILINOGEN 0.2 mg/dL (0.2-1.0)
[2024-08-08] MEDS: ACETAMINOPHEN 325 MG TABLET (FP) PO PRN (11:24)
[2024-08-12] MEDS: VITAMINS A AND D TOPICAL OINTMENT TP SCH (18:17)
[2024-08-14] MEDS: VITAMINS A AND D TOPICAL OINTMENT TP PRN (21:10)
[2024-08-16] MEDS: PRENATAL VITAMINS W/ FOLIC ACID TABLET (FP) PO SCH (05:46)
[2024-08-16] MEDS: BICTEGRAV/EMTRICIT/TENOFOV (BIKTARVY) 50-200-25 MG TABLET PO SCH (11:32)
[2024-08-17] MEDS: BICTEGRAV/EMTRICIT/TENOFOV (BIKTARVY) 50-200-25 MG TABLET PO SCH (10:42)
[2024-08-27 21:54] VITALS: RESP 16
[2024-08-28 05:41] VITALS: BP 130/83; PULSE 67; TEMP 97.3
== END 2024-08-28 09:31 | disposition home or self-care (01) | DRG 772 ==
LOC: YASAS 16:38 → Y3NR 22:48 → Y3W 08-02 09:41
PROVIDERS: ADMIT Psychiatry & Neurology Pain Medicine; ATTEND Psychiatry & Neurology Pain Medicine
PROC: HZ42ZZZ Group Counseling for Substance Abuse Treatment, Cognitive-Behavioral (ICD-10-PCS; principal; 2024-08-01)
DX: F10.20 Alcohol dependence, uncomplicated (principal); F14.20 Cocaine dependence, uncomplicated; F17.210 Nicotine dependence, cigarettes, uncomplicated; F19.282 Other psychoactive substance dependence with psychoactive substance-induced sleep disorder; F19.24 Other psychoactive substance dependence with psychoactive substance-induced mood disorder; F41.9 Anxiety disorder, unspecified; F32.A Depression, unspecified; U07.1 COVID-19; Z21 Asymptomatic human immunodeficiency virus [HIV] infection status; I10 Essential (primary) hypertension; B35.1 Tinea unguium; Z79.899 Other long term (current) drug therapy; Z59.00 Homelessness unspecified
CPT/HCPCS: 0241U-QW; 36415; 80053; 80305; 80307; 81003; 85027; 86593; 86780; 86803; 87811